=== PATIENT | female | born 1965 | race Caucasian/White ===

== ENCOUNTER 2017-05-10 06:51 | Day surgery (SDC) | payer OTHER ==
[~2017-05-10 06:51] MED LIST: ARTHROTEC 75 751 ECT PO; CHEWABLE ASPIRI81 MG PO; CYMBALTA60 M1 PO; DOXYCYCLINE HY100 M3 PO; IMITREX50 MG PO; LOVASTATIN40 MG PO; MULTI VITAMINS1 TAB PO; PROGESTERONE100 M1 PO; SALMETEROL-F28 PUFF2 IN; TAMIFLU 75MG CA75 MG PO
--- NOTE | 2017-05-10 08:38 | Operative Note ---
Colonoscopy ([facility]) Procedure date: 05/10/17 Date of : 67 Procedure:Colonoscopy Colonoscopy with cold snare polypectomy Indications: Mrs. Cain is a 52-year-old female who is here for initial screening colonoscopy. She reports no abdominal pain, weight loss, change in her bowel habits or rectal bleeding. She reports no family history of colon cancer. 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 Performing Provider: Nieves Hernandes MD Referrring Provider: Dev Fairbanks M.D./Thiago Thornton M.D. Sedation: Fentanyl 200 mg IV/Versed 9 mg IV Procedure: Prior to the procedure, a history and physical exam was performed, and patient medications and allergies were reviewed. The risks and benefits of the procedure and the sedation options and risks were discussed with the patient. All questions were answered and informed consent was obtained. Patient identification and proposed procedure were verified by the physician and the nurse. The patient was placed in a left lateral decubitus position. Throughout the procedure, the patient's blood pressure, pulse, and oxygen saturations were monitored continuously. Findings: On digital rectal examination there was normal rectal tone. There were no external hemorrhoids. The colonoscope was introduced through the anal canal to the rectum and advanced to the cecum. The ileocecal valve and appendiceal orifice were identified. The scope was advanced a short distance into the ileum which appeared grossly normal. The scope was then withdrawn into the colon. The cecum, ascending and transverse colon and mucosa were grossly normal. There was a single diminutive transverse polyp that was 5 mm and removed via cold snare polypectomy. There were very mildly scattered diverticuli throughout the colon but more predominantly in the descending and sigmoid colon (LEFT colon). The rectum itself was normal. Upon retroflexion within the rectum there were grade 1 internal hemorrhoids. Impressions: 1. Diminutive transverse polyp 2. Mild pandiverticulosis 3. Grade 1 internal hemorrhoids Recommendations: I will follow up the polyp pathology and recommend repeat colonoscopy again in 5 -10 years based upon the polyp histology. I would encourage fiber supplementation on a long-term daily maintenance basis. Complications: None EBL (ml): 0 at 0837
[2017-05-10 13:54] VITALS: BP 121/84
== END 2017-05-10 09:35 | disposition home or self-care (01) ==
LOC: SDC 06:51
PROVIDERS: Internal Medicine Gastroenterology
PROC: 0DBL8ZX Excision of Transverse Colon, Via Natural or Artificial Opening Endoscopic, Diagnostic (ICD-10-PCS; principal; 2017-05-10 08:00)
DX: Z12.11 Encounter for screening for malignant neoplasm of colon (principal); K63.5 Polyp of colon; K64.0 First degree hemorrhoids; K63.89 Other specified diseases of intestine

== ENCOUNTER → 2017-06-16 | Outpatient (CLI) | payer OTHER ==
--- NOTE | 2017-06-19 08:50 | RADIOLOGY REPORT PS360 ---
DIG MAMM-SCREEN [facility] W/CAD CAD Screening ORDERING PHYSICIAN : Thiago Thornton MD PATIENT AGE: 52 years GENDER: Female COMPARISON: Previous mammograms: December INDICATION: Routine screening taking estrogen. No new complaints. Previous benign needle biopsy benign left breast. Noncontributory family history TECHNIQUE: Standard CC and MLO images were obtained. R2 CAD reviewed. . additional images included with this screening study. FINDINGS: Moderately dense breast with stable mild asymmetry overall architectural pattern. No dominant mass no architectural distortion. No suspicious calcifications. & no significant overall change RIGHT BREAST: Areas of slight asymmetric density appear stable. No new features of concern. LEFT BREAST: But no significant new findings. Small area of density at the medial left breast is unchanged since studies since studies from 2013 & 2011. IMPRESSION:... Stable bilateral mammogram with no significant new areas of concern Moderately dense inhomogeneous breast Stable moderate asymmetric breast Follow-up in one year recommended BI-RADS CATEGORY: 2_Benign RECOMMENDED FOLLOWUP: 12M 12 MONTH FOLLOW-UP (A letter has been sent to the patient regarding results of the study.)
== END ==
LOC: RAD 14:34
DX: Z12.31 Encounter for screening mammogram for malignant neoplasm of breast (principal)
CPT/HCPCS: G0202